=== PATIENT | male | born 1965 | race Caucasian/White ===

== ENCOUNTER 2019-04-21 10:13 | Emergency (ER) | payer SELFPAY ==
[2019-04-21 10:16] VITALS: BP 156/96; PULSE 80; RESP 16; TEMP 36.7; O2SAT 99
--- NOTE | 2019-04-21 10:35 | DI.RAD_ITS ---
SYMPTOMS/DIAGNOSIS: LEFT ELBOW SWELLING/PAIN, ? ACUTE OSTEOMYELITIS LEFT ELBOW: Three views were obtained. There are very prominent hypertrophic degenerative changes of the joints of the elbow. No other focal bony abnormality seen. If there is a clinical suspicion of osteomyelitis, additional evaluation with MRI should be considered.
--- NOTE | 2019-04-21 10:39 | W.ED.GENAD ---
Discharge Plan Disposition Patient Disposition: HOME Condition: Stable Discharge Details Chief Complaint: Orthopedic Clinical Impression: Left elbow tendonitis Primary Care Provider: Tete,Local ED Provider: Tigist Stein Home Meds and New Rx's Prescriptions: New prednisone 20 mg tablet See Rx Instructions .ROUTE .COMPLEX Qty: 12 RF: 0 cephalexin [Keflex] 500 mg capsule 500 mg PO QID Qty: 7 RF: 0 ibuprofen 600 mg tablet 600 mg PO Q6H PRN (Reason: pain) Qty: 20 RF: 0 Discharge Instructions Instructions: Tendinitis (ED) Additional Instructions: Apply cool compresses to the affected area several times daily for 20 minutes at a time. Take the ibuprofen as needed and directed for pain. Take the steroids as directed until finished. If you have no relief in symptoms or development of fever, worsening pain redness or swelling, start the antibiotics. Follow-up with a primary care doctor for reevaluation. Return to the emergency department if you develop any worsening or new concerning symptoms. Discharge Data Discharge Physician: Tigist Stein Medical Decision Making 53-year-old male with a history of hypertension and previous blood infections and remote history of IV drug use who presents with left forearm and elbow pain since last night and feeling fatigue over the past few days. States symptoms feel similar to when he has had a previous blood infection in the past. He denies known fevers, shortness of breath, chest pain, headache, unilateral weakness or numbness. Blood pressure mildly hypertensive, remainder vitals within normal limits. Afebrile. Left elbow significantly tender to palpation with significant limitation of flexion and extension and elbow kept at 90 degrees. It is moderately edematous but does not appear obviously erythematous. He is neurovascularly intact. No other focal deficits noted. Differential diagnosis includes tendinitis, early cellulitis, strain. With patient's previous history of what sounds like sepsis or bacteremia, will place an IV, check screening labs, lactate, ESR and CRP as well as left elbow x-ray. 1300 --labs and imaging reviewed. White blood cell count 13. Normal ESR, lactate and CRP. Elbow x-ray negative. Patient denies any relief with Toradol. He appears uncomfortable. Denies any chest pain. Will give a dose of prednisone. Patient was given a tray of food. Patient drove himself to the ER. We will send home with 2 tabs of oxycodone for breakthrough pain. He is traveling in the area with the local [employer]. He is advised to follow-up with his primary care doctor in the next 1 to 2 weeks for reevaluation and to return here at any time if worse. Medical Records Medical records reviewed: Yes I reviewed the patient's medical records. Lab Data Lab results reviewed: Yes I reviewed the patient's lab results. HPI General Mode of arrival: ambulatory. Date/Time Provider Initiated Documentation: 04/21/19 10:15. Limitations to Documentation: no limitations. Information obtained by: patient. HPI Narrative: Patient is a 53-year-old male with a history of hypertension and previous blood infections who presents with left forearm and elbow pain since this morning as well as fatigue for the past few days. 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 He states he has had similar symptom presentation in the past with overuse as well as with previous blood infection. He denies any fever, chest pain, shortness of breath, unilateral numbness or weakness. Related Data Home Medications Medication Instructions Recorded Confirmed cephalexin [Keflex] 500 mg PO QID #7 cap 04/21/19 ibuprofen 600 mg PO Q6H PRN #20 tab 04/21/19 prednisone See Rx Instructions .ROUTE 04/21/19 .COMPLEX #12 tab Previous Rx's Medication Instructions Recorded cephalexin [Keflex] 500 mg PO QID #7 cap 04/21/19 ibuprofen 600 mg PO Q6H PRN #20 tab 04/21/19 prednisone See Rx Instructions .ROUTE 04/21/19 .COMPLEX #12 tab Allergies Allergy/AdvReac Type Severity Reaction Status Date / Time No Known Allergies Allergy Unverified 04/21/19 10:23 General Stated Complaint: Orthopedic ANASTASIA: 3 Review of Systems Review of Systems All systems reviewed & are unremarkable except as noted in HPI and below Constitutional Reports as per HPI, Denies chills and Denies fever(s) Eyes Denies blurry vision ENT Denies dizziness, Denies sore throat and Denies throat swelling Cardiovascular Denies chest pain and Denies dyspnea Respiratory Denies cough and Denies dyspnea Gastrointestinal Denies abdominal pain, Denies diarrhea and Denies vomiting Genitourinary Denies hematuria and Denies dysuria Musculoskeletal Denies back pain and Denies numbness Integumentary/Breasts Denies lesions and Denies rash Neurologic Denies dizziness, Denies focal weakness and Denies numbness Allergic/Immunologic Denies throat swelling [facility] Medical History HTN (hypertension) (Chronic) Surgical History No significant past surgical history (Acute) Social History Smoking/Tobacco Use Status: Current every day Tobacco Type: cigarettes Alcohol Intake: current Alcohol Intake frequency: 3 or more drinks per day Substance use type: does not use Details: pt reports drinking 3 tall beers per day Exam Const General: cooperative, healthy appearing and no acute distress HENMT Head: normal to inspection Face and sinus: normal facial exam Eyes General: appearance normal, both eyes and all related structures Pupils: PERRL EOM: EOM intact bilaterally Neck Neck: normal visual inspection and No submandibular swelling Lymphatic: no lymphadenopathy noted Chest Chest: normal inspection of the chest and no tenderness Resp Effort & Inspection: normal respiratory effort and able to speak in complete sentences Auscultation: clear to auscultation bilaterally Cardio Rate: regular rate Rhythm: regular rhythm GI Inspection: normal to inspection Palpation: soft, not firm, not rigid and nontender Auscultation: normal bowel sounds Skin General skin exam: no rashes or lesions noted Neuro General: alert, awake and oriented x3 Cognition: normal cognition Speech: speech normal Motor: muscle tone normal throughout Sensory Exam: no sensory deficits noted Other: Right upper extremity normal range of motion and strength. Bilateral lower extremities muscle strength 5/5. Extrem General: normal capillary refill Elbow/forearm/wrist images: 1. Moderate edema and tenderness to palpation along entire elbow from bilateral epicondyles and olecranon. There does not appear to be erythema. There is no induration, fluctuance. Other: Unable to fully extend or flex at elbow. Left elbow kept at 90 degrees due to pain. Left radial and ulnar pulses intact. Normal range of motion at left shoulder, wrist and hand. Psych Appearance: grossly normal Mental Status: mental status grossly normal Speech and Movement: speech and movement normal Affect: normal affect Course Vital Signs Temperature 98.1 F 04/21/19 10:16 Pulse 80 04/21/19 10:16 Respiratory Rate 16 04/21/19 10:16 Blood Pressure 156/96 H 04/21/19 10:16 Pulse Oximetry 99 04/21/19 10:16 Temperature 98.1 F 04/21/19 10:16 Temperature Source Skin 04/21/19 10:16 Pulse 80 04/21/19 10:16 Respiratory Rate 16 04/21/19 10:16 Respiratory Effort Non-Labored 04/21/19 10:19 Blood Pressure 156/96 H 04/21/19 10:16 Blood Pressure Position Supine 04/21/19 10:16 Pulse Oximetry 99 04/21/19 10:16 Oxygen Delivery Method Room Air 04/21/19 10:16 Oxygen Flow Rate 0 04/21/19 10:16
[2019-04-21 10:52] LABS: Abs Immature Grans 0.04 k/cumm (0.0-0.09); Absolute Basophil Count 0.03 k/cumm (0.0-0.2); Absolute Eosinophil Count 0.12 k/cumm (0.0-0.7); Absolute Lymphocyte Count 1.49 k/cumm (1.2-3.4); Absolute Monocyte Count 1.29 k/cumm (0.11-0.7); Absolute Neutrophil Count 10.78 k/cumm (1.2-6.7); Basophils % 0.2; Eosinophils % 0.9; HCT 43.6 % (40.0-50.0); HGB 15.1 g/dL (13.5-17.5); Immature Grans % 0.3; Lactate 1.2 mmol/L (0.6-1.4); Lymphocytes % 10.8; Mean Corp. HGB Concentration 34.6 g/dL (32.0-36.0); Mean Corpuscular Volume 89.5 fL (80-95); Mean Platelet Volume 10.4 fL (8.0-11.0); Monocytes % 9.4; Neutrophils % 78.4; Platelet Count 210 x1000/uL (130-400); RBC 4.87 m/cumm (4.50-6.00); RBC Distribution Width 13.8 % (11.8-14.1); White Blood Cell Count 13.75 k/cumm (4.4-10.8)
[2019-04-21] MEDS: Normal Saline 1,000 ML 1000 ML IV (11:00)
[2019-04-21 11:09] LABS: Anion Gap 10.9 mmol/L (3-11); BUN 24 mg/dL (7-18); C-Reactive Protein 0.25 mg/dL (0.0-0.3); CO2 25.1 mmol/L (21.0-32.0); Calcium 8.5 mg/dL (8.5-10.1); Chloride 102 mmol/L (98-107); Glucose 98 mg/dL (70-100); Potassium 3.5 mmol/L (3.5-5.1); Sodium 138 mmol/L (136-145)
[2019-04-21] MEDS: Lidocaine 5% Patch 1 PATCH TP (11:15)
--- NOTE | 2019-04-21 11:43 | NUR.NOTE ---
Nursing Note: Patient expressed increase of pain after returning X-ray
[2019-04-21 12:01] LABS: ESR 21 mm/hr (1-20)
[2019-04-21] MEDS: Ketorolac 30 MG/ML VIAL IVP (12:31)
[2019-04-21] MEDS: predniSONE 20 MG TAB 60 MG PO (13:19)
[2019-04-21 14:43] VITALS: BP 161/92; PULSE 84; RESP 16; O2SAT 97
[2019-04-21] MEDS: oxyCODONE 5 MG TAB 10 MG PO (14:50)
== END 2019-04-21 14:46 | disposition home or self-care (01) ==
PROVIDERS: Emergency Provider Physician Assistant
DX: M77.8 Other enthesopathies, not elsewhere classified (principal); R60.0 Localized edema; M70.831 Other soft tissue disorders related to use, overuse and pressure, right forearm; X50.3XXA Overexertion from repetitive movements, initial encounter; I10 Essential (primary) hypertension
CPT/HCPCS: 36415; 80048; 85652; 96361; 96374; 99284; 73080; 83605; 85025; 86140; J1885; J7512